=== PATIENT | female | born 1965 | race Caucasian/White ===

== ENCOUNTER 2016-12-25 09:51 | Emergency (ER) | payer OTHER ==
[~2016-12-25] VITALS: Ht 162.6 cm; Wt 48.1 kg
[2016-12-25 09:51] VITALS: BP_SYST 117
[2016-12-25 11:23] VITALS: BP_SYST 115
== END 2016-12-25 11:23 | disposition home or self-care (01) ==
LOC: SED 09:51
DX: S90.111A Contusion of right great toe without damage to nail, initial encounter (principal); V89.2XXA Person injured in unspecified motor-vehicle accident, traffic, initial encounter; Y93.89 Activity, other specified; Y92.488 Other paved roadways as the place of occurrence of the external cause; Y99.8 Other external cause status
CPT/HCPCS: 99284